=== PATIENT | female | born 1980 | race Caucasian/White ===

== ENCOUNTER 2021-05-09 22:11 | Emergency (ER) | payer OTHER ==
[~2021-05-09 22:11] MED LIST: BENTYL 10MG CAP10 MG PO; CLEOCIN HCL300 MG PO; IBUPROFEN600 MG PO; NORFLEX 100 MG100 MG PO; Viscous lidocaine2% TOP; Voltaren Gel 1 % TOP; ZOFRAN4 MG PO
[2021-05-10] MEDS ORDERED: BACTRIM 400-801 EACH PO (02:08)
[2021-05-10] MEDS ORDERED: CEPHALEXIN500 M1 PO (02:08)
== END 2021-05-10 02:30 | disposition home or self-care (01) ==
LOC: ER1 22:11
DX: L03.113 Cellulitis of right upper limb (principal)
CPT/HCPCS: 87070; 87077; 87186; 87205; 96365; 96366; 96375; 99283; J0696; J3370; J7030